=== PATIENT | male | born 1970 | race Hispanic/Latino ===

== ENCOUNTER 2023-01-17 17:32 | Emergency (ER) | payer BC ==
[~2023-01-17] VITALS: Ht 180.3 cm; Wt 154.7 kg
[2023-01-17 20:15] VITALS: BP 141/74; PULSE 76; RESP 18
[2023-01-17] MEDS ORDERED: ASPI-1012 PO (21:01)
== END 2023-01-17 21:42 | disposition home or self-care (01) ==
LOC: EDH 17:32
DX: I80.9 Phlebitis and thrombophlebitis of unspecified site (principal); I10 Essential (primary) hypertension
CPT/HCPCS: 93971

== ENCOUNTER → 2023-05-12 | Outpatient (CLI) | payer OTHER ==
[~2023-05-12] MED LIST: ASPI-1012 PO
== END ==
LOC: RAH 13:01
PROVIDERS: ATTEND Nurse Practitioner Family
DX: Z13.6 Encounter for screening for cardiovascular disorders (principal)
CPT/HCPCS: 75571